=== PATIENT | male | born 1945 | race Caucasian/White ===

== ENCOUNTER 2016-11-28 09:13 | Day surgery (SDC) | payer MEDICARE ==
--- NOTE | ~2016-11-28 | EGD ---
EGD REPORT [facility] [address] [address] NAME: SERINA IZQUIERDO : 43 STATUS : REG [facility] [place] PAT#: [id number] AGE: 71 ADM/REG DATE : 11/28/16 MR#: [id number] REPORT SERV DATE: 11/28/16 DICTATED BY: MACO SAEED DATE: 11/28/16 REPORT STATUS : Draft TRANSCRIBED BY: [facility] DATE: 11/28/16 [facility] Patient Name: Serina Izquierdo Date of : 1945 Attending MD: MACO SAEED MD Procedure Date No Time: 11/28/2016 Procedure: Colonoscopy Indications: Surveillance: History of numerous (> 10) adenomas on last colonoscopy (< 3 yrs) Referring MD: MEHRDAD MCCORMICK MD Medicines: Propofol per Anesthesia Complications: No immediate complications. Procedure: After I obtained informed consent, the scope was passed under direct vision. Throughout the procedure, the patient's blood pressure, pulse, and oxygen saturations were monitored continuously. The CF [id number] was introduced through the anus and advanced to the terminal ileum. The colonoscopy was performed without difficulty. The patient tolerated the procedure well. The quality of the bowel preparation was good. Findings: The perianal and digital rectal examinations were normal. The terminal ileum appeared normal. The colon (entire examined portion) appeared normal. A sessile polyp was found in the ascending colon. The polyp was 1 mm in size. The polyp was removed with a cold biopsy forceps. Resection and retrieval were complete. A sessile polyp was found in the proximal descending colon. The polyp was 3 mm in size. The polyp was removed with a cold biopsy forceps. Resection and retrieval were complete. Four sessile polyps were found in the rectum. The polyps were 1 to 2 mm in size. These polyps were removed with a cold biopsy forceps. Resection and retrieval were complete. Non-bleeding internal hemorrhoids were found during retroflexion and were mild, medium-sized and Grade I (internal hemorrhoids that do not prolapse). Impression: - The examined portion of the ileum was normal. - The entire examined colon is normal. - One 1 mm polyp in the ascending colon. Resected and retrieved. - One 3 mm polyp in the proximal descending colon. Resected and retrieved. - Four 1 to 2 mm polyps in the rectum. Resected and EGD REPORT [address] [place]. [address] NAME: SERINA IZQUIERDO : [birth year] STATUS : REG [facility]#: [id number] AGE: 71 ADM/REG DATE : 11/28/16 MR#: [id number] REPORT SERV DATE: 11/28/16 DICTATED BY: MACO SAEED DATE: 11/28/16 REPORT STATUS : Draft TRANSCRIBED BY: [employer] DATE: 11/28/16 retrieved. - Non-bleeding internal hemorrhoids. Recommendation: - Patient has a contact number available for emergencies. The signs and symptoms of potential delayed complications were discussed with the patient. Return to normal activities tomorrow. Written discharge instructions were provided to the patient. - Return to previous diet. - Continue present medications. - Await pathology results. - Repeat colonoscopy in 3 years for surveillance. - Return to my office as previously scheduled. - Discharge patient to home. Procedure Code(s): --- Professional --- 19598, Colonoscopy, flexible, proximal to splenic flexure; with biopsy, single or multiple Diagnosis Code(s): --- Professional --- K64.0, First degree hemorrhoids K62.1, Rectal polyp D12.4, Benign neoplasm of descending colon D12.2, Benign neoplasm of ascending colon Z86.010, Personal history of colonic polyps CPT copyright 2013 [employer]. All rights reserved. The codes documented in this report are preliminary and upon printing press machine operator review may be revised to meet current compliance requirements. Maco Saeed MD MACO SAEED MD 11/28/2016 11:20 AM This report has been signed electronically. Number of Addenda: 0 Note Initiated On: 11/28/2016 10:33 AM Scope Withdrawal Time 0 hours 20 minutes 39 seconds [id number] [id number]
[~2016-11-28 09:13] MED LIST: ASAB PO; BYSTOLIC5 MG PO; COZAAR100 MG PO; FOLIC PO; HYZAAR1 TAB PO; KLOR-CON 1010 MEQ PO; LEXAPRO10 PO; LIPITOR40 PO; MIRALAX POWDER1 PKT PO; NORV5 PO; PLAVIX PO; PRAVACHOL40 MG PO; PROTONIX PO; RAN500 PO; RENA-VITE PO
== END 2016-11-28 23:59 | disposition home health service (06) ==
LOC: DMU 09:13
PROVIDERS: Internal Medicine Gastroenterology
PROC: 0DBP8ZX Excision of Rectum, Via Natural or Artificial Opening Endoscopic, Diagnostic (ICD-10-PCS; 2016-11-28)
PROC: 0DBM8ZX Excision of Descending Colon, Via Natural or Artificial Opening Endoscopic, Diagnostic (ICD-10-PCS; 2016-11-28)
PROC: 0DBK8ZX Excision of Ascending Colon, Via Natural or Artificial Opening Endoscopic, Diagnostic (ICD-10-PCS; principal; 2016-11-28 10:00)
DX: K62.1 Rectal polyp (principal); K64.0 First degree hemorrhoids; I25.10 Atherosclerotic heart disease of native coronary artery without angina pectoris; E78.00 Pure hypercholesterolemia, unspecified; I73.9 Peripheral vascular disease, unspecified; K21.9 Gastro-esophageal reflux disease without esophagitis; F32.9 Major depressive disorder, single episode, unspecified; F41.9 Anxiety disorder, unspecified; M19.90 Unspecified osteoarthritis, unspecified site; Z86.010 Personal history of colon polyps; Z95.1 Presence of aortocoronary bypass graft; Z87.891 Personal history of nicotine dependence; Z98.890 Other specified postprocedural states
CPT/HCPCS: 88305